=== PATIENT | female | born 1960 | race Caucasian/White ===

== ENCOUNTER → 2017-01-25 | Outpatient (CLI) | payer BC ==
[~2017-01-25] MED LIST: LEVOTHYROXINE100 MCG PO; MIRALAX PACK 171 PKT PO; NAPROXEN 250 M250 MG PO; NORCO 5-325 TA1 EACH PO
[2017-01-25 11:41] LABS: HEMOGLOBIN 12.2 gm/dl (12.3-15.3); RED BLOOD COUNT 4.87 M/UL (4.00-5.10); WHITE BLOOD COUNT 6.8 K/UL (4.5-11.0)
== END ==
LOC: OPSV2 10:30
PROVIDERS: Obstetrics & Gynecology
DX: Z01.810 Encounter for preprocedural cardiovascular examination (principal); Z01.812 Encounter for preprocedural laboratory examination; N81.4 Uterovaginal prolapse, unspecified
CPT/HCPCS: 36415; 81001; 85025; 93005

== ENCOUNTER 2017-02-03 08:01 | Day surgery (SDC) | payer BC, OTHER ==
[~2017-02-03] VITALS: Ht 157.5 cm; Wt 65.3 kg
[2017-02-03] MEDS ORDERED: LEVOTHYROXINE100 MCG PO (08:56)
[2017-02-04 05:59] LABS: HEMOGLOBIN 10.7 gm/dl (12.3-15.3)
[2017-02-05] MEDS ORDERED: MIRALAX PACK 171 PKT PO (11:26)
[2017-02-05] MEDS ORDERED: NAPROXEN 250 M250 MG PO (11:26)
[2017-02-05] MEDS ORDERED: NORCO 5-325 TA1 EACH PO (11:27)
== END 2017-02-05 10:20 | disposition home or self-care (01) ==
LOC: OR 08:01 → M/S 15:10 → OR 02-05 10:20
PROVIDERS: Obstetrics & Gynecology
PROC: 0TSD0ZZ Reposition Urethra, Open Approach (ICD-10-PCS; 2017-02-03)
PROC: 0UT97ZZ Resection of Uterus, Via Natural or Artificial Opening (ICD-10-PCS; principal; 2017-02-03 10:45)
PROC: 0UTC7ZZ Resection of Cervix, Via Natural or Artificial Opening (ICD-10-PCS; 2017-02-03 10:45)
PROC: 0USG0ZZ Reposition Vagina, Open Approach (ICD-10-PCS; 2017-02-03 10:45)
DX: N72 Inflammatory disease of cervix uteri (principal); N87.9 Dysplasia of cervix uteri, unspecified; N80.0 Endometriosis of uterus; D25.9 Leiomyoma of uterus, unspecified; N81.4 Uterovaginal prolapse, unspecified; N81.82 Incompetence or weakening of pubocervical tissue; N39.3 Stress incontinence (female) (male); E78.00 Pure hypercholesterolemia, unspecified; E03.9 Hypothyroidism, unspecified; R03.0 Elevated blood-pressure reading, without diagnosis of hypertension; Z79.899 Other long term (current) drug therapy; Z87.440 Personal history of urinary (tract) infections
CPT/HCPCS: 36415; 84703; 85014; 85018; C1769; C1771; J0690; J1100; J1885; J2250; J2270; J2405; J2710; J2795; J3010; J7120